=== PATIENT | female | born 1990 | race Caucasian/White ===

== ENCOUNTER 2016-09-26 16:09 | Emergency (ER) | payer BC ==
[2016-09-26 16:48] LABS: Hematocrit 39.3 % (37.0-47.0); Hemoglobin 13.6 gm/dL (12.5-16.0); Mean Corpuscular Hemoglobin 31.9 pg (27-31); Mean Corpuscular Hgb Conc 34.6 g/dl (32-36); Mean Platelet Volume 9.6 fl (6.0-9.5); Neutrophil # 4.5 K/mm3 (1.3-6.0); Neutrophil % 63.1 % (42-75.0); Platelet Count 323 K/mm3 (150-450); Red Blood Count 4.27 M/mm3 (4.2-5.4); Red Cell Distribution Width 11.4 % (11.5-14.0); White Blood Count 7.1 K/mm3 (4.0-10.5)
[2016-09-26 16:51] LABS: Urine Bilirubin Negative (NEGATIVE); Urine Blood 250 /ul (NEGATIVE); Urine Ketone Negative (NEGATIVE); Urine Nitrite Negative (NEGATIVE); Urine Protein Negative (NEGATIVE); Urine Specific Gravity <=1.005 SP.GR. (1.005-1.010); Urine Urobilinogen Normal (NORMAL)
[2016-09-26 16:59] LABS: Urine Appearance Clear; Urine Color Yellow
[2016-09-26 17:00] LABS: Urine Bacteria TRACE; Urine WBC 0-5 /hpf (0-5)
--- NOTE | 2016-09-26 17:05 | ERNOTE ---
ER Female HPI Date of Service: 09/26/16 Stated Complaint: POSSIBLE MISCARRIAGE Presenting Symptoms: vaginal bleeding Time Seen by Provider: 09/26/16 16:32 Source: patient Exam Limitations: no limitations Immunizations: IMMUNIZATION HX Immunizations Up to Date Yes History of Influenza Vaccine No Allergies/Adverse Reactions: Allergies No Known Allergies Allergy (Verified 09/26/16 16:25) Home Medications: HOME MEDICATIONS ALPRAZolam [Xanax] 0.5 mg PO BID PRN 09/26/16 [Last Taken Unknown] - History of Present Illness Narrative: Pt. comes in with c/o heavy bleeding and tissue passed from her vagina yesterdayand the worst cramps ever two days ago. Pt. states taht her LMP was august 01 then she hasd a one day period on august 29 and the tissue she passed yesterday was cold, pink and had a fin and was amongst a big clot that she had to "push to pass". Pt. also states taht she had an hour long episode of dizziness from possible anemia today and had to leave work early. Pt. denies ayn fever, NVD, soaking more than one pad in 2 hours, alleviating factors or aggravating factors. Review of Systems - Review of Systems Constitutional: Present: no symptoms reported. Absent: recent illness, fever, chills, weakness, fatigue EYE: Present: no symptoms reported ENT: Present: no symptoms reported Respiratory: Present: no symptoms reported. Absent: shortness of breath, cough , wheezing Cardiology: Present: no symptoms reported. Absent: chest pain, palpitations, edema Gastrointestinal/Abdominal: Present: abdominal pain - suprapubic resolved now. Absent: nausea, vomiting, diarrhea Genitourinary: Present: dysuria - blood, clots and tissue Musculoskeletal: Present: no symptoms reported. Absent: back pain, joint pain Skin: Present: no symptoms reported. Absent: rash, change in color Neurological: Present: no symptoms reported. Absent: headache, dizziness/light- headedness, numbness, tingling All Other Systems: All systems neg except as marked - Patient's Past Medical History Patient History - Surgical Procedures: D & C Patient History - Other: None LMP (females 10-50): this week - Social History Living Situations: significant other Abuse History: No History of abuse Psych History: Psychiatric Hx, Hx of Anxiety Smoking Status: Current some day smoker Have you smoked in the past 12 months: Yes Do you dip or chew tobacco: No Alcohol Use: rarely Drug Use: none - Immunizations Immunizations Up to Date: Yes History of Influenza Vaccine: No Physical Exam - Physical Exam General Appearance: Present: wd/wn, alert, no apparent distress Eye Exam: Normal inspection: bilateral, PERRL: bilateral, EOMI: bilateral Ears, Nose, Throat: Present: normal ENT inspection, normal pharynx Neck: Present: normal inspection, nontender. Absent: lymphadenopathy (R), lymphadenopathy (L) Respiratory: Present: no respiratory distress, normal breath sounds, no accessory muscle use, chest nontender, lungs clear Cardiovascular/Chest: Present: regular rate, rhythm, no murmur, normal peripheral pulses Gastrointestinal/Abdominal: Present: normal bowel sounds, tenderness - suprapubic and L adnexa Back Exam: Present: normal inspection, normal range of motion, no CVA tenderness , no vertebral tenderness Extremity Exam: Present: normal inspection, non-tender, normal range of motion, no edema Neurological Exam: Present: alert, oriented, no motor/sensory deficits, other - anxious Skin Exam: Present: normal color, warm/dry. Absent: pallor, skin rash Pelvic Exam: Present: active bleeding - scant, tender adnexa - L. Absent: cervical motion tendernes, tender uterus ED Progress - Date and Time Seen: Date and Time: 09/26/16 17:02 I did not witness any clots or tissue and pt. HCG quant and qual. negative 09/26/16 19:24 US negative for any pathology. feel that if pt. did miscarry there is no evidence of any retained products or any complications. - Results and Orders Patient's Lab Results:: I have reviewed the patient's lab results. - Vital Signs Patient's Vital Signs:: I have reviewed the patient's vital signs. Vital Signs: Vital Signs 09/26/16 16:10 Temperature 36.5 C Pulse Rate 107 H Respiratory 16 Rate Blood Pressure 160/96 O2 Sat by Pulse 99 Oximetry - CT/Ultrasound CT/Ultrasound Narrative: US negative for any pelvic pathology - Progress/Reassessment Chief Complaint: Genitourinary Problem Progress:: Unchanged Departure Clinical Impression: Missed Menses regular with excessive bleeding Qualifiers: Menorrahagia type: with regular cycle Qualified Code(s): N92.0 - Excessive and frequent menstruation with regular cycle - Departure Disposition: Home self-care Condition: Good Instructions: Test Information, Menorrhagia, [id number] Additional Instructions: Please follow up with primary provider if no improvement in 2-3 days.
[2016-09-26 19:27] VITALS: BP 158/84
== END 2016-09-26 19:34 | disposition home or self-care (01) ==
LOC: ER 16:09
DX: O02.1 Missed abortion (principal); N92.0 Excessive and frequent menstruation with regular cycle; F17.200 Nicotine dependence, unspecified, uncomplicated

== ENCOUNTER 2017-03-12 19:45 | Emergency (ER) | payer BC ==
[2017-03-12] MEDS ORDERED: KETOROLAC TROMETHAMINE 60 MG/2 ML VIAL IM ONE ×2 (20:32→20:38)
[2017-03-12] MEDS ORDERED: ORPHENADRINE CITRATE 30 MG/ML VIAL IM ONE (20:32)
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
[2017-03-12] MEDS ORDERED: ORPHENADRINE CITRATE 30 MG/ML VIAL ONE (20:38)
[2017-03-12 21:27] VITALS: BP 106/70
== END 2017-03-12 20:40 | disposition home or self-care (01) ==
LOC: ER 19:45
DX: M54.5 Low back pain (principal); V89.2XXA Person injured in unspecified motor-vehicle accident, traffic, initial encounter; Y92.411 Interstate highway as the place of occurrence of the external cause; F31.9 Bipolar disorder, unspecified; F17.200 Nicotine dependence, unspecified, uncomplicated